=== PATIENT | female | born 1960 | race Caucasian/White ===

== ENCOUNTER 2025-02-14 22:26 | Emergency (ER) | payer OTHER ==
[~2025-02-14] VITALS: Ht 165.1 cm; Wt 61.0 kg
[2025-02-14 22:31] VITALS: BP 130/84; PULSE 76; RESP 18; TEMP 36.4; O2SAT 98
== END 2025-02-14 22:54 | disposition home or self-care (01) ==
LOC: ER 22:26
DX: F10.129 Alcohol abuse with intoxication, unspecified (principal); Y90.9 Presence of alcohol in blood, level not specified
CPT/HCPCS: 99283